=== PATIENT | female | born 1985 | race Caucasian/White ===

== ENCOUNTER 2016-06-02 08:21 | Emergency (ER) | payer MEDICAID ==
[~2016-06-02] VITALS: Wt 50.5 kg
[2016-06-02] MEDS ORDERED: CIPR7.5D4 LEFT EAR (10:02)
[2016-06-02] MEDS ORDERED: BENZ100C70 PO (10:02)
[2016-06-02] MEDS ORDERED: AZIT250T94 PO (10:02)
[2016-06-02] MEDS ORDERED: ACET500C5 PO (10:03)
--- NOTE | 2016-06-02 11:26 | ERD ---
ER Documentation Chief Complaint Date/Time DATE: 06/02/16 TIME: 11:21 Chief Complaint L EAR PAIN AND DRAINAGE FOR A FEW DAYS. NO FEVER. MILD COUGH AND SORE THRT HPI 30-year-old female with no significant past medical history presents to the ED complaining of left ear pain that started 3 days ago. States that she has a mild dry cough and sore throat. Reports that she has been taking Robitussin without relief of her symptoms. Reports that her son is also sick with similar symptoms. Denies any chest pain, shortness of breath, wheezing, abdominal pain , nausea, vomiting, diarrhea. Denies any leg swelling. Denies any recent traveling. Denies any headache, weakness, rashes. ROS All systems reviewed and are negative except as per history of present illness. Medications Home Meds Active Scripts Acetaminophen* (Tylophen*) 500 Mg Capsule, 1 CAP PO Q6H Y for PAIN AND OR ELEVATED TEMP, #20 CAP Prov:RUMA PARRISH PA-C 06/02/16 Benzonatate* (Tessalon Perle*) 100 Mg Capsule, 100 MG PO Q8H Y for COUGH, #20 CAP Prov:RUMA PARRISH PA-C 06/02/16 Azithromycin* (Zithromax*) 250 Mg Tablet, 250 MG PO .ZPACK DIRECTED, #6 TAB TAKE 500 MG (2 TABS) THE FIRST DAY THEN 250 MG (1 TAB) DAYS 2-5 Prov:RUMA PARRISH PA-C 06/02/16 Ciprofloxacin Hcl/Dexameth (Ciprodex Otic Suspension) 7.5 Ml Drops.susp, 4 DROP LEFT EAR BID for 7 Days, EA Prov:RUMA PARRISH PA-C 06/02/16 PMhx/Soc Medical and Surgical Hx: pt denies Medical Hx, pt denies Surgical Hx History of Surgery: No Anesthesia Reaction: No Hx Neurological Disorder: No Hx Respiratory Disorders: No Hx Cardiac Disorders: No Hx Psychiatric Problems: No Hx Miscellaneous Medical Probl: No Hx Alcohol Use: No Hx Substance Use: No Hx Tobacco Use: No Smoking Status: Never smoker Physical Exam Vitals Vital Signs Date Time Temp Pulse Resp B/P Pulse Ox O2 Delivery O2 Flow Rate FiO2 06/02/16 08:27 98.6 84 20 116/58 99 Physical Exam Const: [id number], well-nourished. In no acute distress. Head: Atraumatic, normocephalic Eyes: Normal Conjunctiva without injection. No purulent discharge. PERRL. EOMI ENT: Normal external ear. Ear canal without erythema. Tympanic membrane pearly loera without effusion or bulging. No tenderness to palpation of the mastoid or tragus. Nasal canal clear with normal turbinates. Moist oropharynx without tonsillar exudates. Non-erythematous pharynx. Uvula midline. No drooling. No trismus. Neck: Full range of motion. No meningismus. No cervical lymphadenopathy. Resp: Clear to auscultation bilaterally. No wheezing, rhonchi, rales, or crackles. No accessory muscle use. No retractions. Cardio: Regular rate and rhythm. No murmurs, rubs or gallops. Skin: No petechiae or rashes Back: No midline tenderness. No CVA tenderness. Ext: No cyanosis, or edema. Neur: Awake and alert. Psych: Normal Mood and Affect Procedures/MDM 30-year-old female with no significant past medical history presents to the ED complaining of left ear pain, dry cough, sore throat. Patient is afebrile and nontoxic-appearing. Patient has normal vital signs. Patient's physical exam is consistent with otitis media. Patient does not have tenderness to palpation of tragus or mastoid. Low suspicion for otitis externa or mastoiditis. Patient' s physical exam include lungs which were clear to auscultation and a normal pulse oximetry. Patient is speaking in full sentences. There is a low suspicion for pneumonia, epiglottitis, croup, viral/strep pharyngitis, sinusitis, peritonsillar abscess, retropharyngeal abscess, meningitis, sepsis, acute abdomen or other emergent conditions. Discharge medications: Tylenol, Zithromax, Ciprodex, Tessalon Perles Follow up with primary care physician in 1-2 days. Instructed patient to return to the ED sooner for any worsening symptoms. Patient's questions were answered. Patient understood and agreed with discharge plan. Patient discharged stable. Departure Diagnosis: Primary Impression: Cough Additional Impression: Left ear pain Condition: Stable Patient Instructions: Bronchitis, Antiobiotic Treatment (Adult), External Ear Infection (Adult) Referrals: COMMUNITY CLINICS YOU HAVE RECEIVED A MEDICAL SCREENING EXAM AND THE RESULTS INDICATE THAT YOU DO NOT HAVE A CONDITION THAT REQUIRES URGENT TREATMENT IN THE EMERGENCY DEPARTMENT. FURTHER EVALUATION AND TREATMENT OF YOUR CONDITION CAN WAIT UNTIL YOU ARE SEEN IN YOUR DOCTORS OFFICE WITHIN THE NEXT 1-2 DAYS. IT IS YOUR RESPONSIBILITY TO MAKE AN APPOINTMENT FOR FOLOW-UP CARE. IF YOU HAVE A PRIMARY DOCTOR --you should call your primary doctor and schedule an appointment IF YOU DO NOT HAVE A PRIMARY DOCTOR YOU CAN CALL OUR PHYSICIAN REFERRAL HOTLINE AT IF YOU CAN NOT AFFORD TO SEE A PHYSICIAN YOU CAN CHOSE FROM THE FOLLOWING [facility] [address] [facility] [address] [facility] [facility] [address] [facility] [address] [facility] [facility] [address] [facility]. [facility] [address] [facility]. [facility] YOU HAVE RECEIVED A MEDICAL SCREENING EXAM AND THE RESULTS INDICATE THAT YOU DO NOT HAVE A CONDITION THAT REQUIRES URGENT TREATMENT IN THE EMERGENCY DEPARTMENT. FURTHER EVALUATION AND TREATMENT OF YOUR CONDITION CAN WAIT UNTIL YOU ARE SEEN IN YOUR DOCTORS OFFICE WITHIN THE NEXT 1-2 DAYS. IT IS YOUR RESPONSIBILITY TO MAKE AN APPOINTMENT FOR FOLOW-UP CARE. IF YOU HAVE A PRIMARY DOCTOR --you should call your primary doctor and schedule and appointment IF YOU DO NOT HAVE A PRIMARY DOCTOR YOU CAN CALL OUR PHYSICIAN REFERRAL HOTLINE AT . IF YOU CAN NOT AFFORD TO SEE A PHYSICIAN YOU CAN CHOSE FROM THE FOLLOWING [facility] INSTITUTIONS: [facility] [address] [place] [address] [facility] [address] [place] [address] [facility] [address] [place] [address] [facility] URGENT CARE/SPECIALTIES Additional Instructions: Llame al doctor MAANA y amelia guzman TAYE PARA DENTRO DE 1-2 HORN.Dgale a la secretaria que nosotros le instruimos hacer esta taye.Avise o llame si rhodes condicin se empeora antes de la taye. Regresa aqui si peor o no mejor. RUMA PARRISH PA-C Jun 02, 2016 11:25
== END 2016-06-02 10:21 | disposition home or self-care (01) ==
LOC: FTE 08:21
DX: R05 Cough (principal); H92.02 Otalgia, left ear
CPT/HCPCS: 99284

== ENCOUNTER 2018-06-08 09:12 | Emergency (ER) | payer MEDICAID ==
[~2018-06-08] VITALS: Ht 157.5 cm; Wt 48.9 kg
[~2018-06-08 09:12] MED LIST: ACET500C5 PO; AZIT250T PO; BENZ-6 PO; CIPR7.5D LEFT EAR
[2018-06-08 09:34] VITALS: Ht 157.5 cm; Wt 48.9 kg
[2018-06-08] MEDS ORDERED: HYDR28.334 TP (12:12)
[2018-06-08] MEDS ORDERED: CLOT30CR24 TOP (12:12)
--- NOTE | 2018-06-08 12:15 | ERD ---
ER Documentation Chief Complaint Chief Complaint Complains of generealized rash x 3 days HPI 32-year-old female presents for rash times 2 weeks. She states that the rash is in the abdomen or back and upper back. Associated itchiness. She denies abdominal pain, nausea, vomiting. She denies chest pain or shortness of breath. No prior similar symptoms. ROS All systems reviewed and are negative except as per history of present illness. Medications Home Meds Active Scripts Hydrocortisone (Hydrocortisone Cr) 28.35 Gm Cr, 28.35 GM TP BID PRN for ITCHING for 7 Days, #1 TUBE Prov:CARRINGTON PRIDE 06/08/18 Clotrimazole* (Clotrimazole* AF) 1% - 30 Gm Cream.gm., 1 APPLIC TOP BID for rash for 7 Days, #1 TUB Prov:CARRINGTON PRIDE 06/08/18 Acetaminophen* (Tylophen*) 500 Mg Capsule, 1 CAP PO Q6H PRN for PAIN AND OR ELEVATED TEMP, #20 CAP Prov:RUMA PARRISH-C 06/02/16 Benzonatate* (Tessalon Perle*) 100 Mg Capsule, 100 MG PO Q8H PRN for COUGH, #20 CAP Prov:RUMA PARRISH-C 06/02/16 Azithromycin* (Zithromax*) 250 Mg Tablet, 250 MG PO .ZPACK DIRECTED, #6 TAB TAKE 500 MG (2 TABS) THE FIRST DAY THEN 250 MG (1 TAB) DAYS 2-5 Prov:RUMA PARRISH-C 06/02/16 Ciprofloxacin Hcl/Dexameth (Ciprodex Otic Suspension) 7.5 Ml Drops.susp, 4 DROP LEFT EAR BID for 7 Days, EA Prov:RUMA PARRISH-C 06/02/16 Allergies Allergies: Coded Allergies: No Known Allergy (Unverified , 06/08/18) PMhx/Soc History of Surgery: Yes (tubal ligation ) Anesthesia Reaction: No Hx Neurological Disorder: No Hx Respiratory Disorders: No Hx Cardiac Disorders: No Hx Psychiatric Problems: No Hx Miscellaneous Medical Probl: No Hx Alcohol Use: No Hx Substance Use: No Hx Tobacco Use: No Physical Exam Vitals Vital Signs Date Temp Pulse Resp B/P (MAP) Pulse Ox O2 O2 Flow FiO2 Time Delivery Rate 3/21/19 98.5 104 20 129/69 99 09:34 (89) Physical Exam Const: No acute distress Resp: Clear to auscultation bilaterally Cardio: Regular rate and rhythm, no murmurs Abd: Soft, non tender, non distended. Normal bowel sounds Skin: Circular macular papular rash noted over the abdomen, lower chest and upper chest, there is irregular borders over 1 of the lesions with raised borders peripherally and some crusting. Back: No midline or flank tenderness Ext: No cyanosis, or edema Neur: Awake and alert Psych: Normal Mood and Affect Procedures/MDM Medical Decision Making: Differential diagnosis includes but not limited to fungal infection, colitis, dermatitis, allergic reaction Patient appeared well on physical exam. Physical examination consistent with a fungal infection. Prescription(s): Patient given prescription for antifungal cream and hydrocortisone cream. Patient advised to follow up with PCP in 1-2 days. Patient advised to return to ED for new or worsening symptoms. Patient stable on discharge from the ED. Disclaimer: Inadvertent spelling and grammatical errors are likely due to EHR/dictation software use and do not reflect on the overall quality of patient care. Also, please note that the electronic time recorded on this note does not necessarily reflect the actual time of the patient encounter. Departure Diagnosis: Primary Impression: Rash Condition: Fair Patient Instructions: Self-Care for Skin Rashes Referrals: [facility] YOU HAVE RECEIVED A MEDICAL SCREENING EXAM AND THE RESULTS INDICATE THAT YOU DO NOT HAVE A CONDITION THAT REQUIRES URGENT TREATMENT IN THE EMERGENCY DEPARTMENT. FURTHER EVALUATION AND TREATMENT OF YOUR CONDITION CAN WAIT UNTIL YOU ARE SEEN IN YOUR DOCTORS OFFICE WITHIN THE NEXT 1-2 DAYS. IT IS YOUR RESPONSIBILITY TO MAKE AN APPOINTMENT FOR FOLOW-UP CARE. IF YOU HAVE A PRIMARY DOCTOR --you should call your primary doctor and schedule an appointment IF YOU DO NOT HAVE A PRIMARY DOCTOR YOU CAN CALL OUR PHYSICIAN REFERRAL HOTLINE AT IF YOU CAN NOT AFFORD TO SEE A PHYSICIAN YOU CAN CHOSE FROM THE FOLLOWING [facility] [address] [facility] [address] [facility] [address] [facility] [address] [facility] [facility] [address] [facility] [facility] [address] Additional Instructions: Llame al doctor MAANA y amelia guzman TAYE PARA DENTRO DE 1-2 HORN.Dgale a la secretaria que nosotros le instruimos hacer esta taye.Avise o llame si rhodes condicin se empeora antes de la taye. Regresa aqui si peor o no mejor. CARRINGTON PRIDE DO Jun 08, 2018 12:14
[2018-06-08 12:44] VITALS: BP 109/59; PULSE 81; RESP 18
== END 2018-06-08 12:45 | disposition home or self-care (01) ==
LOC: FTE 09:12
DX: R21 Rash and other nonspecific skin eruption (principal)
CPT/HCPCS: 99283